=== PATIENT | female | born 1985 | race Hispanic/Latino ===

== ENCOUNTER 2019-02-27 07:57 | Emergency (ER) | payer OTHER ==
[2019-02-27] MEDS ORDERED: ONDANSETRON 4 MG/2 ML VIAL ONE (08:37)
[2019-02-27] MEDS ORDERED: MORPHINE 4 MG/ML SYR ONE (08:37)
[2019-02-27] MEDS ORDERED: NA CHLORIDE 0.9% 1,000 ML ONE (08:37)
[2019-02-27 09:23] LABS: Absolute Lymphocytes (CBC) 1.6 K/uL (0.7-4.9); Basophils % 0.5 % (0-1.3); Hematocrit 30.6 % (36.0-45.0); Lymphocytes % 19.6 % (15.3-44.8); MPV 8.2 fL (7.6-11.3); RBC Red Blood Cell Count 4.15 M/uL (3.86-4.86)
[2019-02-27 09:35] LABS: Albumin 3.5 g/dL (3.4-5.0); Bilirubin Direct 0.1 mg/dL (0-0.2); Bilirubin Total 0.4 mg/dL (0.2-1.0); Potassium 3.8 mmol/L (3.5-5.1); Protein, Total 7.6 g/dL (6.4-8.2)
--- NOTE | 2019-02-27 10:52 | RAD REPORT ---
EXAM DESCRIPTION: CT - Abdomen Pelvis W Contrast - 02/27/2019 10:18 am CLINICAL HISTORY: ABD PAIN COMPARISON: None. TECHNIQUE: Biphasic, helical CT imaging of the abdomen and pelvis was performed following 100 ml non -ionic IV contrast. No oral contrast administered. All CT scans are performed using dose optimization technique as appropriate and may include automated exposure control or mA/KV adjustment according to patient size. FINDINGS: No suspicious findings in the lung bases. The liver, spleen, and pancreas show no suspicious findings. Gallbladder and biliary tree are also wi thout suspicious finding. Symmetric renal function is seen with no hydronephrosis or suspicious renal mass. No pyelonephritis o r acute parenchymal process. No bladder abnormalities. No adrenal abnormalities. No dilated bowel loops or bowel wall thickening. No free air, free fluid or inflammatory stranding. No hernia, mass or bulky lymphadenopathy. No suspicious bony findings. A 10 x 10 x 8 centimeter heterogeneous mass fills the central portion of the uterus. A 2 x 1 centimet er cystic area is present anterior fundus. Left ovary is normal. Right ovary is not clearly defined a nd may be closely approximated to the lateral margin of the uterus. Uterine finding may represent a s ana rosa large fibroid. Large hematoma in the endometrial cavity is possible. CT imaging does not show a ctive extravasation of contrast material. IMPRESSION: Large 10 x 10 x 8 centimeter heterogeneous mass fills the central uterus. Finding may represent a dominant fibroid filling the endometrial cavity. A large hematoma within the endometrial cavity would be possible. Active extravasation of contrast is not seen.
--- NOTE | 2019-02-27 11:27 | EDPHYS ---
Physician Documentation [facility] Name: Karolina Wong Age: 33 yrs Sex: Female : 1985 Arrival Date: 02/27/2019 Time: 08:00 Bed 15 Private MD: ED Physician Regulo Noel HPI: 02/27 08:36 This 33 yrs old Female presents to ER via Ambulatory with complaints of pm1 Abdominal Pain. 08:36 The patient presents with abdominal pain , suprapubic pain. pm1 08:36 Onset: The symptoms/episode began/occurred last night. The symptoms do not radiate. pm1 Associated signs and symptoms: Pertinent positives: nausea and vomiting, Pertinent negatives: diarrhea, dysuria, fever. The symptoms are described as sharp. Modifying factors: The symptoms are alleviated by nothing, the symptoms are aggravated by nothing. Severity of pain: in the emergency department the pain is actually worse. The patient has not experienced similar symptoms in the past. The patient has been recently seen by a physician: for apparently unrelated complaints, with gynecology for papsmear. 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 - Social history:: Smoking status: Patient/guardian denies using tobacco. - Ebola Screening: : Patient denies exposure to infectious person Patient denies travel to an Ebola-affected area in the 21 days before illness onset. ROS: 08:36 Constitutional: Negative for fever, chills, and weight loss, Eyes: Negative for injury, pm1 pain, redness, and discharge, ENT: Negative for injury, pain, and discharge, Neck: Negative for injury, pain, and swelling, Cardiovascular: Negative for chest pain, palpitations, and edema, Respiratory: Negative for shortness of breath, cough, wheezing, and pleuritic chest pain, Back: Negative for injury and pain. 08:36 : Negative for injury, bleeding, discharge, and swelling, MS/Extremity: Negative for injury and deformity, Skin: Negative for injury, rash, and discoloration, Neuro: Negative for headache, weakness, numbness, tingling, and seizure. 08:36 Abdomen/GI: Positive for abdominal pain, Negative for nausea, vomiting, and diarrhea. Exam: 08:36 Constitutional: This is a well developed, well nourished patient who is awake, alert, pm1 and in no acute distress. Head/Face: Normocephalic, atraumatic. Neck: Trachea midline, no thyromegaly or masses palpated, and no cervical lymphadenopathy. Supple, full range of motion without nuchal rigidity, or vertebral point tenderness. No Meningismus. Chest/axilla: Normal chest wall appearance and motion. Nontender with no deformity. No lesions are appreciated. Cardiovascular: Regular rate and rhythm with a normal S1 and S2. No gallops, murmurs, or rubs. Normal PMI, no JVD. No pulse deficits. Respiratory: Lungs have equal breath sounds bilaterally, clear to auscultation and percussion. No rales, rhonchi or wheezes noted. No increased work of breathing, no retractions or nasal flaring. 08:36 Back: No spinal tenderness. No costovertebral tenderness. Full range of motion. Skin: Warm, dry with normal turgor. Normal color with no rashes, no lesions, and no evidence of cellulitis. MS/ Extremity: Pulses equal, no cyanosis. Neurovascular intact. Full, normal range of motion. 08:36 Abdomen/GI: Inspection: abdomen appears normal, Bowel sounds: normal, Palpation: soft, moderate abdominal tenderness, in the suprapubic area, mass, is not appreciated, rebound tenderness, is not appreciated. 08:36 Neuro: Orientation: is normal, Motor: is normal, moves all fours. Vital Signs: 08:04 Pulse 108; Resp 18; Temp 98.2(TE); Pulse Ox 97% on R/A; Weight 83.91 kg; Height 4 ft. ss 11 in. (149.86 cm); Pain 8/10; 09:15 BP 161 / 127; Pulse 82; Resp 17; Pulse Ox 100% on R/A; ae4 10:05 BP 172 / 116; Pulse 87; Resp 19; Pulse Ox 100% on R/A; Pain 3/10; rb1 11:00 BP 154 / 91; Pulse 83; Resp 17; Pulse Ox 99% on R/A; Pain 2/10; rb1 11:51 BP 154 / 99; Pulse 89; Resp 16; Pulse Ox 98% on R/A; Pain 2/10; rb1 08:04 Body Mass Index 37.37 (83.91 kg, 149.86 cm) ss MDM: 08:07 Patient medically screened. pm1 08:30 Data reviewed: vital signs. Data interpreted: Pulse oximetry: on room air is 97 %. pm1 Interpretation: normal. 11:21 Counseling: I had a detailed discussion with the patient and/or guardian regarding: the pm1 historical points, exam findings, and any diagnostic results supporting the discharge/admit diagnosis, lab results, radiology results, the need for outpatient follow up, for definitive care, an OB/Gyne specialist, to return to the emergency department if symptoms worsen or persist or if there are any questions or concerns that arise at home. 02/27 08:23 Order name: Flu; Complete Time: 09:37 pm1 02/27 08:23 Order name: Basic Metabolic Panel; Complete Time: 09:37 pm1 02/27 08:23 Order name: CBC with Diff; Complete Time: 09:25 pm1 02/27 08:23 Order name: Creatinine for Radiology; Complete Time: 09:37 pm1 02/27 08:23 Order name: Hepatic Function; Complete Time: 09:37 pm1 02/27 08:23 Order name: Lipase; Complete Time: 09:37 pm1 02/27 08:23 Order name: CT Abd/Pelvis - IV Contrast Only; Complete Time: 11:00 pm1 02/27 08:23 Order name: Urine Dipstick-Ancillary (obtain specimen); Complete Time: 09:14 pm1 02/27 08:23 Order name: Urine Test (obtain specimen); Complete Time: 09:12 pm1 02/27 09:12 Order name: Urine Dipstick--Ancillary (enter results) eb 02/27 09:12 Order name: Urine --Ancillary (enter results) eb 02/27 08:23 Order name: IV Saline Lock; Complete Time: 09:12 pm1 02/27 08:23 Order name: Labs collected and sent; Complete Time: 09:12 pm1 Administered Medications: 09:06 Drug: Zofran 4 mg Route: IVP; Site: left antecubital; ae4 09:16 Follow up: Response: Nausea is decreased ae4 09:06 Drug: NS 0.9% 1000 ml Route: IV; Rate: 1000 ml; Site: left antecubital; ae4 10:15 Follow up: IV Status: Completed infusion rb1 09:12 Drug: morphine 4 mg Route: IVP; Site: left antecubital; ae4 09:16 Follow up: Response: Pain is decreased; RASS: Alert and Calm (0) ae4 Disposition: 19:50 Co-signature as Attending Physician, Regulo Noel MD I agree with the assessment and germán plan of care. Disposition: 02/27/19 11:26 Discharged to Home. Impression: Uterine mass - Leiomyoma of uterus. - Condition is Stable. - Discharge Instructions: Uterine Fibroids, Pelvic Pain, Female. - Prescriptions for Zofran 4 mg Oral Tablet - take 1 tablet by ORAL route every 12 hours As needed; 20 tablet. Tramadol 50 mg Oral Tablet - take 1 tablet by ORAL route every 8 hours As needed as needed; 20 tablet. - Medication Reconciliation Form, Thank You Letter, Antibiotic Education, Prescription Opioid Use form. - Follow up: Emergency Department; When: As needed; Reason: Worsening of condition. Follow up: Private Physician; When: 2 - 3 days; Reason: Recheck today's complaints, Continuance of care, Re-evaluation by your physician. Follow up: Brianda Alexander MD; When: 2 - 3 days; Reason: Recheck today's complaints, Continuance of care, Re-evaluation by your physician. - Problem is new. - Symptoms have improved. Signatures: Dispatcher [employer] Regulo Green MD MD cha Smirch, Shelby, RN RN ss Berna Killian, RN RN rb1 Clayotn Rosenberg, MARU IMCU SPECIALIST pm1 Hoemro Shah RN RN ae4 Corrections: (The following items were deleted from the chart) 11:28 11:26 02/27/2019 11:26 Discharged to Home. Impression: Uterine mass - Leiomyoma of pm1 uterus. Condition is Stable. Forms are Medication Reconciliation Form, Thank You Letter, Antibiotic Education, Prescription Opioid Use. Follow up: Emergency Department; When: As needed; Reason: Worsening of condition. Follow up: Private Physician; When: 2 - 3 days; Reason: Recheck today's complaints, Continuance of care, Re-evaluation by your physician. Problem is new. Symptoms have improved. pm1 11:53 11:28 02/27/2019 11:26 Discharged to Home. Impression: Uterine mass - Leiomyoma of rb1 uterus. Condition is Stable. Discharge Instructions: Uterine Fibroids. Prescriptions for Tylenol-Codeine #3 300-30 mg Oral Tablet - take 2 tablet by ORAL route every 6 hours As needed; 30 tablet, Zofran 4 mg Oral Tablet - take 1 tablet by ORAL route every 12 hours As needed; 20 tablet. and Forms are Medication Reconciliation Form, Thank You Letter, Antibiotic Education, Prescription Opioid Use. Follow up: Emergency Department; When: As needed; Reason: Worsening of condition. Follow up: Private Physician; When: 2 - 3 days; Reason: Recheck today's complaints, Continuance of care, Re-evaluation by your physician. Follow up: Brianda Alexander; When: 2 - 3 days; Reason: Recheck today's complaints, Continuance of care, Re-evaluation by your physician. Problem is new. Symptoms have improved. pm1
--- NOTE | 2019-02-27 11:27 | ER ---
Nurse's Notes [facility] Name: Karolina Wong Age: 33 yrs Sex: Female : 1985 Arrival Date: 02/27/2019 Time: 08:00 Bed 15 Private MD: Diagnosis: Uterine mass - Leiomyoma of uterus Presentation: 02/27 08:03 Presenting complaint: Patient states: suprapubic discomfort and nausea that began last ss night. Denies fever. Transition of care: patient was not received from another setting of care. Onset of symptoms was February 26, 2019. Risk Assessment: Do you want to hurt yourself or someone else? Patient reports no desire to harm self or others. Initial Sepsis Screen: Does the patient meet any 2 criteria? HR > 90 bpm. Does the patient have a suspected source of infection? No. Patient's initial sepsis screen is negative. Care prior to arrival: None. 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 - Social history:: Smoking status: Patient/guardian denies using tobacco. - Ebola Screening: : Patient denies exposure to infectious person Patient denies travel to an Ebola-affected area in the 21 days before illness onset. Screenin:13 Abuse screen: Denies threats or abuse. Nutritional screening: No deficits noted. ae4 Tuberculosis screening: No symptoms or risk factors identified. Fall Risk None identified. Assessment: 08:13 General: Appears uncomfortable, Behavior is calm, cooperative. Pain: Complains of pain rb1 in abdomen Pain currently is 8 out of 10 on a pain scale. Neuro: Level of Consciousness is awake, alert, obeys commands, Oriented to person, place, time, situation. Cardiovascular: Capillary refill < 3 seconds is brisk in bilateral fingers. Respiratory: Airway is patent Respiratory effort is even, unlabored, Respiratory pattern is regular, symmetrical. : No signs and/or symptoms were reported regarding the genitourinary system. Derm: Skin is pink, warm \T\ dry. Musculoskeletal: Range of motion: intact in all extremities. 09:00 General: Appears uncomfortable, well groomed, Behavior is cooperative, anxious, ae4 restless. Pain: Complains of pain in abdomen Pain currently is 8 out of 10 on a pain scale. Neuro: Level of Consciousness is awake, alert, obeys commands, Oriented to person, place, time, situation, Appropriate for age. Cardiovascular: Patient's skin is warm and dry. Respiratory: Airway is patent Breath sounds are clear bilaterally. GI: Bowel sounds present X 4 quads. 10:00 Reassessment: Patient appears in no apparent distress at this time. Patient and/or rb1 family updated on plan of care and expected duration. Pain level reassessed. Patient is alert, oriented x 3, equal unlabored respirations, skin warm/dry/pink. Pain 3/10 Patient states symptoms have improved. 11:00 Reassessment: Patient appears in no apparent distress at this time. No changes from [facility] previously documented assessment. 11:52 Reassessment: Patient appears in no apparent distress at this time. Patient and/or rb1 family updated on plan of care and expected duration. Pain level reassessed. Patient is alert, oriented x 3, equal unlabored respirations, skin warm/dry/pink. Patient states feeling better. Vital Signs: 08:04 Pulse 108; Resp 18; Temp 98.2(TE); Pulse Ox 97% on R/A; Weight 83.91 kg; Height 4 ft. ss 11 in. (149.86 cm); Pain 8/10; 09:15 BP 161 / 127; Pulse 82; Resp 17; Pulse Ox 100% on R/A; ae4 10:05 BP 172 / 116; Pulse 87; Resp 19; Pulse Ox 100% on R/A; Pain 3/10; rb1 11:00 BP 154 / 91; Pulse 83; Resp 17; Pulse Ox 99% on R/A; Pain 2/10; rb1 11:51 BP 154 / 99; Pulse 89; Resp 16; Pulse Ox 98% on R/A; Pain 2/10; rb1 08:04 Body Mass Index 37.37 (83.91 kg, 149.86 cm) ED Course: 08:00 Patient arrived in ED. ag5 08:04 Triage completed. 08:04 Arm band placed on right wrist. ss 08:06 Clayton Rosenberg, GLASS LAMINATING OPERATOR is PHCP. pm1 08:06 Regulo Noel MD is Attending Physician. pm1 08:23 Berna Killian, RN is Primary Nurse. rb1 08:28 Radiology exam delayed due to lab results not completed at this time. (BUN/Creatinine) nj IV insertion attempt and/or patient not having appropriate IV at this time. 08:28 Radiology exam delayed due to test not completed at this time. nj 08:45 Missed attempt(s): 22 gauge in left forearm. rb1 09:13 Inserted saline lock: 22 gauge in left antecubital area, using aseptic technique. Blood ae4 collected. 09:14 Bed in low position. Call light in reach. Side rails up X 1. Adult w/ patient. Pulse ox ae4 on. NIBP on. 09:32 Radiology exam delayed due to lab results not completed at this time. (BUN/Creatinine). nj 10:[address] via wheelchair. nj 10:15 CT completed. Patient tolerated procedure well. Patient moved back from CT. bq 10:19 CT Abd/Pelvis - IV Contrast Only In Process Unspecified. EDMS 11:28 Brianda Alexander MD is Referral Physician. pm1 11:52 No provider procedures requiring assistance completed. IV discontinued, intact, rb1 bleeding controlled, No redness/swelling at site. Pressure dressing applied. Administered Medications: 09:06 Drug: Zofran 4 mg Route: IVP; Site: left antecubital; ae4 09:16 Follow up: Response: Nausea is decreased ae4 09:06 Drug: NS 0.9% 1000 ml Route: IV; Rate: 1000 ml; Site: left antecubital; ae4 10:15 Follow up: IV Status: Completed infusion rb1 09:12 Drug: morphine 4 mg Route: IVP; Site: left antecubital; ae4 09:16 Follow up: Response: Pain is decreased; RASS: Alert and Calm (0) ae4 Outcome: 11:26 Discharge ordered by . pm1 11:52 Discharged to home ambulatory, with significant other. rb1 11:52 Condition: stable 11:52 Discharge instructions given to patient, Instructed on discharge instructions, follow up and referral plans. medication usage, Demonstrated understanding of instructions, follow-up care, medications, Prescriptions given X 2. 11:53 Patient left the ED. rb1 Signatures: Dispatcher [employer] EDMS Jaquelin Johnston Shelby, RN RN ss Berna Killian RN RN rb1 Clayton Rosenberg, MARU GLASS LAMINATING OPERATOR pm1 Alvaro Sharp Ajare ag5 Homero Shah RN RN ae4
[2019-02-27 12:00] VITALS: TEMP 98.2
[2019-02-27 12:06] VITALS: BP 154/99; O2SAT 98
[2019-02-27 14:11] LABS: Urine Blood NEGATIVE (NEG); Urine Glucose NEGATIVE (NEG); Urine Protein TRACE (NEG)
== END 2019-02-27 11:53 | disposition home or self-care (01) ==
LOC: ER 07:57
DX: D25.9 Leiomyoma of uterus, unspecified (principal); Z85.43 Personal history of malignant neoplasm of ovary
CPT/HCPCS: 96361; 85025; 80048; 36415; 81025; 80076; 81003; 83690; 87804 ×2; 74177; 96375; 96374; 99284; Q9967; J7030; J2405

== ENCOUNTER 2020-05-02 08:23 | Day surgery (SDC) | payer BC ==
[2020-04-28 11:46] LABS: Absolute Lymphocytes (CBC) 1.6 K/uL (0.7-4.9); Basophils % 0.6 % (0-1.3); Hematocrit 27.4 % (36.0-45.0); MPV 8.3 fL (7.6-11.3); RBC Red Blood Cell Count 4.28 M/uL (3.86-4.86)
[2020-04-28 12:34] LABS: Anisocytosis 1+; Blood Morphology Comment NOTED (NOT SEEN); Hypochromasia 1+; Platelet Estimate ADEQ
[2020-05-02] MEDS ORDERED: Ringers Lactate 1,000 ML IV ONE (09:15)
[2020-05-02 09:18] VITALS: O2SAT 98
[2020-05-02] MEDS ORDERED: MIDAZOLAM HCL 2 MG/2 ML INJ ONE (10:50)
[2020-05-02] MEDS ORDERED: propofoL 200 MG/20 ML VIAL IV ONE ×2 (10:50→12:13)
[2020-05-02] MEDS ORDERED: LIDOCAINE 1% MPF 2 ML AMPULE ONE (10:50)
[2020-05-02] MEDS ORDERED: FENTANYL CITR 100 MCG/2 ML ONE (10:50)
[2020-05-02] MEDS ORDERED: NA CHLORIDE 0.9% 2,000 ML ONE (10:58)
[2020-05-02] MEDS: LIDOCAINE 1% W/EPI 1:100,000 MDV 20 ML VIAL ONE ×2 (11:14→11:58)
[2020-05-02] MEDS ORDERED: SILVER NITRATE 1 APPL TOP ONE (11:41)
[2020-05-02] MEDS ORDERED: dexAMETHasone 10 MG/ML VIAL ONE (11:54)
[2020-05-02] MEDS ORDERED: KETOROLAC 30 MG/ML INJ ONE (12:23)
[2020-05-02] MEDS ORDERED: CEFAZOLIN SODIUM 1 GM/VIAL ONE (12:23)
[2020-05-02] MEDS ORDERED: HYDROCODONE/APAP 5/325 MG TAB ONE (13:07)
[2020-05-02 13:30] VITALS: BP 162/93; TEMP 96.9
--- NOTE | 2020-05-02 13:32 | OP ---
Date of Procedure: 05/02/2020 Surgeon: Brianda Alexander MD Preoperative Diagnosis: Abnormal uterine bleeding-L/ anemia. Postoperative Diagnosis: Abnormal uterine bleeding-L/ anemia. Failed endometrial sampling in this office, endometrial Pipelle biopsy. Anesthesia: MAC plus paracervical block. Specimens: Endometrial curettings. Complications: No complications. Drains: None. Condition: Stable. Findings: The patient is a 34-year-old female who presented with heavy menstrual bleeding. No histo ry of fibroids. The uterine fundus was about 16-18 weeks size. Office endometrial sampling was perf ormed as we were planning to do myomectomy; however, there was no adequate implant or in [facility]. So, she was consented for hysteroscopy D and C. In the hospital for retrieval of adequate amount of tissue and most likely the feasibility issue was having the anteflexion and flexible scope. Procedure Note: After informed consent was , the patient was taken back to OR, placed in s upine fashion on the operating table. MAC was given and placed in the dorsal lithotomy position john gallagher. Speculum placed to expose the cervix. Anterior lip injected with 1% lidocaine mix ed with 1:100,000 epinephrine. Then, prep x3 with Betadine was done. Anterior lip grasped with 2 Al lis clamps. Diagnostic SlimLine hysteroscope introduced in the cervix and uterine canal was entered with extreme anteflexion and taking out the speculum. Once this was accomplished, there was smooth c entral, posterior wall mostly mass, like a leiomyoma. Some clotty tissue in the lower canal. I coul d not turn above the level of the endometrial mass, which is the fibroid because of the acute antefle xion that is needed with the rigid scope. This was not feasible, so visualization was don e, then went down to remove that and perform a D and C. Cervix was dilated to 12-Albanian . Specimen was sent for permanent pathology. Instrument and sponge counts were correct. The patient t olerated the procedure well. When she comes back to the office, we will review and make sure that he r pathology of the endometrium was unremarkable, then proceed with myomectomy. MAU/PIPPA Voice ID: [id number] Report ID: [id number]
== END 2020-05-02 13:05 | disposition home or self-care (01) ==
LOC: OR 08:23
PROVIDERS: ATTEND Obstetrics & Gynecology
PROC: 0UDB8ZX Extraction of Endometrium, Via Natural or Artificial Opening Endoscopic, Diagnostic (ICD-10-PCS; principal; 2020-05-02 09:30)
DX: N92.0 Excessive and frequent menstruation with regular cycle (principal); Z20.822 Contact with and (suspected) exposure to COVID-19; D50.0 Iron deficiency anemia secondary to blood loss (chronic); Z85.43 Personal history of malignant neoplasm of ovary; D25.9 Leiomyoma of uterus, unspecified
CPT/HCPCS: 85025; 36415; 81025; 88305; 58558; U0002; J2704 ×2; J2250; J3010; J1100; J2001; J7120; J7030; J0690

== ENCOUNTER 2020-06-20 06:14 | Inpatient (IN) | payer BC ==
[2020-06-16 11:02] LABS: Urine Appearance CLEAR (Clear); Urine Bilirubin NEGATIVE (Negataive); Urine Blood NEGATIVE (Negative); Urine Color YELLOW (Yellow); Urine Glucose NEGATIVE (Negative); Urine Microscopic Reflex NO UMIC; Urine Protein NEGATIVE (Negative); Urine Specific Gravity 1.025 (1.005-1.030); Urine Urobilinogen 0.2 mg/dL (0.2-1.0)
[2020-06-16 11:02] LABS: Absolute Lymphocytes (CBC) 1.4 K/uL (0.7-4.9); Basophils % 0.8 % (0-1.3); Lymphocytes % 17.4 % (15.3-44.8); MPV 8.7 fL (7.6-11.3); RBC Red Blood Cell Count 5.12 M/uL (3.86-4.86)
[2020-06-16 11:27] LABS: BUN Blood Urea Nitrogen 10 mg/dL (7-18); Bicarbonate 27 mmol/L (21-32); Glucose Level 106 mg/dL (74-106); Potassium 4.3 mmol/L (3.5-5.1); Sodium Level 137 mmol/L (136-145)
[2020-06-16 11:59] LABS: Anisocytosis SLIGHT; Blood Morphology Comment NOTED (NOT SEEN); Platelet Estimate ADEQ
[2020-06-20] MEDS ORDERED: SCOPOLAMINE HYDROBROMIDE PATCH TD ONE ×2 (06:45→06:54)
[2020-06-20] MEDS ORDERED: CEFAZOLIN/SWI 1gm 1 GM/10 ML SYR ONE (06:55)
[2020-06-20] MEDS ORDERED: BUPIVACAINE 0.25% PF 30 ML VIAL ONE (07:14)
[2020-06-20] MEDS ORDERED: FENTANYL CITR 250 MCG/5 ML ONE ×2 (07:16→10:30)
[2020-06-20] MEDS ORDERED: KETAMINE HCL 500 MG/5 ML VIAL ONE (07:16)
[2020-06-20] MEDS ORDERED: MIDAZOLAM HCL 2 MG/2 ML INJ ONE (07:16)
[2020-06-20] MEDS ORDERED: LIDOCAINE 2% MPF 5 ML VIAL ONE (07:16)
[2020-06-20] MEDS ORDERED: ROCURONIUM 50 MG/5 ML VIAL IV ONE (07:16)
[2020-06-20] MEDS ORDERED: dexAMETHasone 10 MG/ML VIAL ONE (07:16)
[2020-06-20] MEDS ORDERED: propofoL 200 MG/20 ML VIAL IV ONE (07:16)
[2020-06-20] MEDS ORDERED: NS 0.9% VIAL 10 ML ONE (07:16)
[2020-06-20] MEDS ORDERED: ONDANSETRON 4 MG/2 ML VIAL ONE (07:19)
[2020-06-20] MEDS: CEFAZOLIN/SWI 2gm 2 GM/20 ML SYR ONE ×2 (07:20→08:04)
[2020-06-20] MEDS ORDERED: NA CHLORIDE 0.9% 100 ML IV ONE (08:06)
[2020-06-20] MEDS ORDERED: VASOPRESSIN 20 UNIT/ML VIAL ONE (08:06)
[2020-06-20] MEDS: Ringers Lactate 1,000 ML IV ONE ×5 (08:40→12:10)
[2020-06-20] MEDS ORDERED: VECURONIUM 10 MG/VIAL IV ONE (09:08)
[2020-06-20] MEDS ORDERED: Ringers Lactate 1,000 ML IV ONE ×3 (09:11→11:01)
[2020-06-20] MEDS ORDERED: EPHEDRINE SULF 50 MG/ML VIAL ONE (10:38)
[2020-06-20] MEDS ORDERED: Phenylephrine HCl 10 MG/ML 1 ML VIAL ONE (10:57)
[2020-06-20] MEDS ORDERED: ALBUMIN HUM 5% 250 ML IV ONE (11:37)
[2020-06-20] MEDS: NA CHLORIDE 0.9% 500 ML ONE ×2 (11:41→11:45)
[2020-06-20] MEDS ORDERED: GLYCOPYRROLATE 0.2 MG/ML SYR ONE ×2 (12:41)
[2020-06-20] MEDS ORDERED: NEOSTIGMINE 1 MG/ML -5 ML ONE (12:43)
[2020-06-20] MEDS ORDERED: KETOROLAC 30 MG/ML INJ ONE (12:43)
[2020-06-20] MEDS ORDERED: PROMETHAZINE INJ 25 MG/ML AMP IV PRN (12:53)
[2020-06-20] MEDS ORDERED: IBUPROFEN 200 MG TAB PO PRN (12:53)
[2020-06-20] MEDS ORDERED: ONDANSETRON 4 MG/2 ML VIAL IV PRN (12:53)
[2020-06-20] MEDS ORDERED: MORPHINE/NS PCA 50 MG/50 ML PCA.SYRING IV PRN (12:58)
[2020-06-20] MEDS ORDERED: NALOXONE 0.4 MG/ML VIAL IV PRN (12:58)
--- NOTE | 2020-06-20 13:01 | P.BOP ---
Preoperative diagnosis: AUB-L, pelvic pain and dysmenorrhea Postoperative diagnosis: same and adenomyoma, endometrioma on the uterine wall Primary procedure: Laparotomy, Myomectomy, endometriosis excision from uterine wall Guitar Maker Hand: Josh Benson Estimated blood loss: 900 Specimen: myoma 956g endometriosis Anesthesia: General Complications: None Drain(s): Urinary catheter Fluids & blood products: 2U PRBC Transferred to: Recovery Room Condition: Good
[2020-06-20 13:24] LABS: Absolute Lymphocytes (CBC) 1.5 K/uL (0.7-4.9); Basophils % 0.3 % (0-1.3); Hematocrit 24.9 % (36.0-45.0); Lymphocytes % 8.1 % (15.3-44.8); MPV 8.6 fL (7.6-11.3)
--- OUTSIDE RECORDS SUMMARY | 2020-06-20 13:32 | XMS REPORT | Continuity of Care Document ---
:1985 Author Organization [facility] t Address [address] [place] [address] Care Team Providers Name Role Phone Lab, Fam Pob I Attending Clinician Unavailable Pob1, Care Clinic Attending Clinician Unavailable Problems This patient has no known problems. Allergies, Adverse Reactions, Alerts This patient has no known allergies or adverse reactions. Medications This patient has no known medications. Procedures This patient has no known procedures. Encounters Start End Encounter Admission Attending Care Care Encounter Source Date/Time Date/Time Type Type Clinicians Facility Department ID 2020-03-23 2020-03-23 Laboratory Lab, Adc [facility] [id number] 18:49:09 19:09:09 Only Fam Pob I Health [id number] [place] [id number] Professio [phone] [address] 2019-08-24 2019-08-24 Urgent Pob1, Acute [facility] [id number] 13:38:34 13:58:34 [facility] [id number] [place] [id number] Professio [phone] [address] Results This patient has no known results.
[2020-06-20 13:39] LABS: BUN Blood Urea Nitrogen 8 mg/dL (7-18); Bicarbonate 22 mmol/L (21-32); Glucose Level 174 mg/dL (74-106); Potassium 4.5 mmol/L (3.5-5.1); Sodium Level 140 mmol/L (136-145)
[2020-06-20] MEDS: FENTANYL CITR 100 MCG/2 ML ONE ×3 (14:05→14:37)
[2020-06-20] MEDS ORDERED: NA CHLORIDE 0.9% 250 ML ONE (14:17)
[2020-06-20 15:15] LABS: Anisocytosis 3+; Blood Morphology Comment NOTED (NOT SEEN); Platelet Estimate ADEQ; White Blood Cell Scan OK (OK)
[2020-06-20 16:16] VITALS: BMI 40.4
[2020-06-20 18:20] LABS: Absolute Lymphocytes (CBC) 0.9 K/uL (0.7-4.9); Basophils % 0.1 % (0-1.3); Hematocrit 27.1 % (36.0-45.0); Lymphocytes % 5.2 % (15.3-44.8); MPV 8.9 fL (7.6-11.3); RBC Red Blood Cell Count 3.37 M/uL (3.86-4.86)
[2020-06-20 18:22] LABS: Blood Morphology Comment NOTED (NOT SEEN); Platelet Estimate ADEQ; White Blood Cell Scan OK (OK)
[2020-06-20 18:23] LABS: Anisocytosis 2+
[2020-06-20] MEDS: Ringers Lactate 1,000 ML IV SCH (21:00)
[2020-06-20] MEDS: METOPROLOL TAR 25 MG TAB PO SCH (21:00)
--- NOTE | 2020-06-20 23:22 | OP ---
Date of Procedure: 06/20/2020 Surgeon: Brianda Alexander MD Hook Tender: Dr. Lee. Preoperative Diagnoses: Menorrhagia (AUB-L), pelvic pain and dysmenorrhea. Postoperative Diagnoses: Menorrhagia (AUB-L), pelvic pain and dysmenorrhea and endometriosis, extens jeanne endometrioma on the uterus and suspected adenomyosis. Procedures Performed: Open laparotomy, myomectomy and endometriosis excision. Anesthesia: General endotracheal. Ebl: 900. Urine Output: 300. Complications: No complications. Blood Transfusion: 1 unit. Drains: Taveras catheter. Findings: The uterus was extremely large above the level of the umbilicus after pelvic exam under an esthesia was performed. This was deemed to be very difficult to be managed laparoscopically. The fi broid was on the posterior wall, appeared to extend all the way down to her cervix. So at the time o f the exam under anesthesia, I decided to proceed directly with the laparotomy. There were endometriotic implants on the uterine wall, 1 of them about 4 cm and was an endometrioma w ith endometriotic chocolate cyst contents inside it. This was excised. There were 3 other implants that were removed completely before the closure of the uterus. The fibroids were complex and multipl e. The largest was the posterior left lateral myoma. This appeared to be mostly adenomyotic and the re were a few other small leiomyomata on the right of the adenomyoma. Reconstruction was performed with 6 layers of closure of the myometrium as there were multiple cuts i n the posterior wall. The posterior wall incision extended all the way from the fundus down to the a federico above the cervix in the midline. Indication: The patient is a 34-year-old 0 with history of malignant ovarian tumor. In 1997 , she had removal of the tube and ovary at that time and has done well without any other problems or tumor masses. She presented with heavy bleeding, anemia, had a large uterine mass consistent with a fibroid. MRI was performed to confirm that this was actually a uterine mass and not an adnexal mass given the patient had history of ovarian cancer. Her CA-125 was 81 in the 70s and 80s, even on repea t testing. Her hemoglobin level was at the lowest 8 g and most currently before the surgery was 11. Discussed about all the different options for management of the leiomyomata given her pelvic pain as well, diagnostic procedure, as well as treatment if endometriosis was found was discussed along with removal of fibroids, removal of fibroids was consented for as the patient had significant anemia, an d she wanted to preserve fertility in the future, which precluded the use of uterine artery embolizat ion. Medical treatment would be temporary and reversible. So, this was not acceptable to the patien t, so consented her for a diagnostic laparoscopy, myomectomy or a laparotomy with myomectomy includin g consent for procedures as needed. Procedure In Detail: She was brought to the OR. 2 g of Ancef were given. She was taken back to the operating room, placed in a supine fashion on the operating table. General anesthesia was given. I talked to her and all questions were answered to their satisfaction. Possibility of hystere ctomy was also discussed with the patient. She was intubated and placed in a dorsal lithotomy position. Pelvic exam was then performed and the cervix appeared to be small. The uterine masses appeared to be high, and the top of the fundus was a amanda the level of the umbilicus and the patient had a small pelvis anatomically. This had occupied m ost of the pelvis and there was a significant fullness without too much of space and so decided to pe rform a laparotomy. Abdomen, vulva, vagina and perineum were prepped and draped in a sterile fashion. Taveras was placed t o drain the bladder on the abdomen. 0.25% Marcaine was injected along the scar that was planned. Th en 10 blade was used to make the skin incision. Subcutaneous fat and fascia were taken down with the help of the Bovie. Peritoneum was entered sharply and then rest of the fascial incision extended guajardo periorly and inferiorly with the help of the Bovie and safely dissecting with omentum from the perito neum on the right side. It was reflected to the left. The left anterior abdominal wall also had ome ntal adhesions but these did not need to be taken down in order for me to perform the surgery. So th e liver left in place. The uterus was exteriorized after extending the incision above her umbilicus. This had to be done. Due to the size of the fibroid, it would not come out through that smaller in cision in the lower midline. Once the fibroid was pulled out, then it was defined and it was complet juvenal all on the posterior aspect. So, dilute vasopressin 20 units and 40 cc of normal saline was take n, injected along the midline all the way from the fundus to the lower body and then laterally as wel l. Then, incision was made on the serosa myometrium to the level of the fibroid. This was very soft , ill-defined mass in the lateral and superior aspects, very suspicious for an adenomyoma. There wer e 2 fibroids on the left lateral aspect of this mass. They were significantly large endometriotic im plants the largest of which was at least 4 x 3 cm and had chocolate like material in it, probably chr onic endometrioma. This was excised in an elliptical fashion after injecting the base and the specim en was handed out separately. Later on, there were endometriotic implants through the serosa and the superficial myometrium. They had to be excised for her improvement of pain. Once the adenomyoma was reached, the layers were . Significant amount of bleeding from the vessels. There was not much space to get to the uterine artery to dissect and clip. So I proceeded with just pressure cautery and suture placement for hemostasis as needed. The myoma was circumferent ially and dissected off from its base using the 10 curved LigaSure. Once the entire myoma was , I did not enter the endometrial cavity itself. However, the endometrium was visualize d and all the layers of the myometrium were invaded. Hemostasis was secured at the base. Then, the closure was performed closing the sub myometrial tissue first and vertical line starting at the fundu s down to the lower body of the uterus, almost close to the cervix. Then, 3 other layers were done t o pull the myometrial wall together and also to achieve good hemostasis. The next layer was the laye r of myometrium that was peeled off that was superior to the myoma. This was brought together with a 0 Vicryl in a continuous running fashion. Then, the topmost layer was a baseball stitch with 0 Vicr yl and this was completed with good hemostasis. The tube and ovary that were present were on the left side of the patient. Definitively, the right t ube and ovary were absent, which was contrary to what the patient had recalled and given history. Ho wever, no other omental masses or peritoneal masses were noted. Good inspection of the pelvic cavity was performed thoroughly. Blood was cleaned up. Irrigation and suction were performed. Then, the uterus was replaced into the peritoneal cavity. Then, mass closure was performed through the fascia and the omentum together. 0 PDS was used to close the fascia from top down and then bottom up and shaista ined in the middle. Thorough irrigation and suction were performed of the subcutaneous tissues and s ubcutaneous tissues were closed with the help of 3-0 chromic. Then the skin was closed with the help of [place]. Taveras was left in place. Instrument, needle, and sponge counts x3 were correct at the end of the case. The patient tolerated the procedure well. She was given 1 unit of blood from packe d red blood cells for which she was typed and crossed. Her blood loss at the end of the case was 900 and her urine output was 300. She was hemodynamically stable. She started to get slightly tachycar dic towards the end of the case. She will have a postoperative H and H and will be monitored here. She will be admitted for an approximately 2-day admission. MAU/PIPPA Voice ID: [id number] Report ID: [id number]
[2020-06-21 00:40] LABS: Hematocrit 24.2 % (36.0-45.0)
[2020-06-21] MEDS: Ringers Lactate 1,000 ML IV SCH ×4 (05:00→21:28)
[2020-06-21 06:16] LABS: Hematocrit 20.7 % (36.0-45.0)
[2020-06-21 06:29] LABS: BUN Blood Urea Nitrogen 10 mg/dL (7-18); Bicarbonate 27 mmol/L (21-32); Glucose Level 127 mg/dL (74-106); Potassium 4.1 mmol/L (3.5-5.1); Sodium Level 141 mmol/L (136-145)
[2020-06-21 06:32] LABS: Magnesium 1.4 mg/dL (1.8-2.4)
[2020-06-21] MEDS: NORETHINDRONE E ESTRADIOL IRON PO SCH (09:00)
[2020-06-21] MEDS: FERROUS SULFATE 325 MG TAB PO SCH (09:00)
[2020-06-21] MEDS: HOME MED 1 EA UNK (Multivitamin [Multiple Vitamins] Tablet) PO SCH (09:00)
[2020-06-21] MEDS: HOME MED 1 EA UNK (Cider Vinegar [Apple Cider Vinegar] 300 MG Tablet) PO SCH (09:00)
[2020-06-21] MEDS ORDERED: NA CHLORIDE 0.9% 500 ML ONE (09:15)
[2020-06-21] MEDS: HOME MED 1 EA UNK (Levothyroxine Sodium [Levothyroxine] 50 MCG Capsule) PO SCH (11:00)
[2020-06-21] MEDS: METOPROLOL TAR 25 MG TAB PO SCH ×2 (11:45→21:22)
[2020-06-21] MEDS: Magnesium Sulfate 2gm IVPB 2 G/50 ML BAG IV ONE ×3 (15:44→16:03)
[2020-06-21] MEDS ORDERED: HYDROCODONE/APAP 5/325 MG TAB PO PRN (18:50)
[2020-06-21 19:01] LABS: Hematocrit 23.6 % (36.0-45.0)
[2020-06-21] MEDS: HYDROCODONE/APAP 5/325 MG TAB PO PRN (21:24)
[2020-06-22] MEDS ORDERED: MAGNESIUM SULFATE 1 gm IVPB 1 GM/100 ML BAG IV ONE (01:47)
[2020-06-22] MEDS: IBUPROFEN 600 MG TAB PO PRN ×2 (03:04→13:40)
[2020-06-22 05:42] VITALS: O2SAT 96
[2020-06-22] MEDS: Ringers Lactate 1,000 ML IV SCH ×2 (06:41→13:00)
[2020-06-22] MEDS: HYDROCODONE/APAP 5/325 MG TAB PO PRN (08:43)
[2020-06-22] MEDS: FERROUS SULFATE 325 MG TAB PO SCH (08:44)
[2020-06-22] MEDS: METOPROLOL TAR 25 MG TAB PO SCH ×2 (08:45→08:50)
[2020-06-22] MEDS: HOME MED 1 EA UNK (Multivitamin [Multiple Vitamins] Tablet) PO SCH (08:47)
[2020-06-22] MEDS: HOME MED 1 EA UNK (Cider Vinegar [Apple Cider Vinegar] 300 MG Tablet) PO SCH (08:47)
[2020-06-22] MEDS: HOME MED 1 EA UNK (Levothyroxine Sodium [Levothyroxine] 50 MCG Capsule) PO SCH (08:47)
[2020-06-22] MEDS: NORETHINDRONE E ESTRADIOL IRON PO SCH (08:47)
[2020-06-22 09:30] LABS: Absolute Lymphocytes (CBC) 1.3 K/uL (0.7-4.9); Basophils % 0.4 % (0-1.3); Hematocrit 19.3 % (36.0-45.0); Lymphocytes % 14.8 % (15.3-44.8); MPV 8.6 fL (7.6-11.3); RBC Red Blood Cell Count 2.35 M/uL (3.86-4.86)
[2020-06-22 09:38] LABS: BUN Blood Urea Nitrogen 5 mg/dL (7-18); Bicarbonate 25 mmol/L (21-32); Glucose Level 122 mg/dL (74-106); Potassium 3.6 mmol/L (3.5-5.1); Sodium Level 140 mmol/L (136-145)
[2020-06-22 10:41] VITALS: BP 123/58; TEMP 98.7
[2020-06-22 13:14] LABS: Platelet Estimate ADEQ; White Blood Cell Scan OK (OK)
[2020-06-22 13:16] LABS: Anisocytosis 1+; Blood Morphology Comment NOTED (NOT SEEN)
[2020-06-22 13:22] LABS: Polychromasia 1+
[2020-06-22 13:25] LABS: Rouleau SLIGHT
[2020-06-22 13:52] LABS: Hematocrit 19.9 % (36.0-45.0)
== END 2020-06-22 15:30 | disposition home or self-care (01) | DRG 742 ==
LOC: OR 06:14 → 2ND-WC 13:13 → 2ND 06-21 15:54
PROVIDERS: ADMIT Obstetrics & Gynecology; ATTEND Obstetrics & Gynecology
PROC: 30233N1 Transfusion of Nonautologous Red Blood Cells into Peripheral Vein, Percutaneous Approach (ICD-10-PCS; 2020-06-20)
PROC: 0UB90ZZ Excision of Uterus, Open Approach (ICD-10-PCS; principal; 2020-06-20 07:30)
DX: N80.0 Endometriosis of uterus (principal); Z68.41 Body mass index [BMI] 40.0-44.9, adult; D62 Acute posthemorrhagic anemia; N92.0 Excessive and frequent menstruation with regular cycle; E03.9 Hypothyroidism, unspecified; I10 Essential (primary) hypertension; E66.01 Morbid (severe) obesity due to excess calories; D26.1 Other benign neoplasm of corpus uteri; R87.610 Atypical squamous cells of undetermined significance on cytologic smear of cervix (ASC-US); Z85.43 Personal history of malignant neoplasm of ovary; Z80.3 Family history of malignant neoplasm of breast; Z79.899 Other long term (current) drug therapy; Z79.890 Hormone replacement therapy; Z20.822 Contact with and (suspected) exposure to COVID-19
CPT/HCPCS: 36415; 36430; 80048; 81003; 81025; 82947; 83735; 84439; 84443; 85014; 85018; 85025; 86850; 86900; 86901; 88305; 94010; J0690; J1100; J2250; J2270; J2370; J2405; J2704; J2710; J3010; J3475; J7040; J7050; J7120; P9016; P9045; U0003